=== PATIENT | female | born 1995 | race Caucasian/White ===

== ENCOUNTER 2018-06-29 01:25 | Emergency (ER) | payer BC, OTHER ==
[~2018-06-29] VITALS: Ht 154.9 cm; Wt 56.7 kg
[2018-06-29 01:30] VITALS: BP_SYST 121
--- NOTE | 2018-06-29 01:30 | NUR ---
Patient to ER bed 07 to gown for evaluation. Side rails up. Will assume care
--- NOTE | 2018-06-29 01:33 | NUR ---
ER Dr. Dubon at bedside examining patient.
--- NOTE | 2018-06-29 01:35 | NUR ---
Patient brought into ED after taking between 10 to 11 pills of Celexa 20 mg at 2230 on 06/28/18. Patient reports that she takes the medication for depression the last 3 years and is currently having nausea and mild headache. Patient in mild distress and tearful. Reports she has been under a lot of stress but just wants her mom. Reports mother is on her way but lives in [place]. Denies any SI/HI. No other complaints/injuries per patient or as noted. Will continue to monitor.
[2018-06-29] MEDS ORDERED: NACL 0.9% 1,000 ML IV ONE (01:45)
[2018-06-29] MEDS ORDERED: CEL20 PO (02:06)
[2018-06-29] MEDS ORDERED: OXCA300T4 PO (02:07)
[2018-06-29 02:14] LABS: BASOPHILS # (AUTO) 0.1 K/uL (0.0-0.2); BASOPHILS % (AUTO) 0.9 % (0.0-2.0); EOSINOPHILS # (AUTO) 0.2 K/uL (0.0-0.4); EOSINOPHILS % (AUTO) 2.9 % (0.0-4.0); HEMATOCRIT 38.4 % (36-48); HEMOGLOBIN 12.5 g/dL (12.0-16.0); LYMPHOCYTES % (AUTO) 28.1 % (20.5-51.5); MEAN CORPUSCULAR HEMOGLOBIN 27 pg (27-31); MEAN CORPUSCULAR HGB CONC 33 % (32-36); MEAN CORPUSCULAR VOLUME 82 fL (79.0-98.0); MONOCYTES # (AUTO) 0.5 K/uL (0.0-1.0); MONOCYTES % (AUTO) 7.1 % (1.7-9.3); NEUTROPHILS # (AUTO) 4.2 K/uL (1.8-7.7); PLATELET COUNT (AUTO) 232 K/uL (130-430); RED CELL DISTRIBUTION WIDTH 13.3 % (9.0-15.0)
--- NOTE | 2018-06-29 02:16 | NUR ---
Called Poison Control at [phone] and spoke with Don. Per recommendations: Acetaminophen, Salicyclates, Alcohol, Metabolic Panel, and supportive care. Place Patient on Cardiac monitoring for 12 hours to monitor QT interval. Dr. Dubon notified. Will continue to monitor patient.
[2018-06-29 02:22] LABS: ANION GAP 9 (5-15); CALCIUM 9.5 mg/dL (8.4-11.0); CHLORIDE 101 mmol/L (98-107); CREATININE 0.63 mg/dL (0.55-1.30); GLUCOSE 96 mg/dL (70-99); POTASSIUM 3.3 mmol/L (3.5-5.1); SODIUM SERUM 139 mmol/L (136-145); UREA NITROGEN, BLOOD 11 mg/dL (8-21)
[2018-06-29 02:27] LABS: GFR AFRICAN AMERICAN 153 mL/min (>90)
[2018-06-29 02:29] LABS: ALANINE AMINOTRANSFERASE 27 U/L (12-78); ASPARTATE AMINOTRANSFERASE 17 U/L (10-37); TOTAL BILIRUBIN 0.2 mg/dL (0.0-1.0)
[2018-06-29 02:33] LABS: ALCOHOL, BLOOD < 3 mg/dL (<10)
--- NOTE | 2018-06-29 02:34 | NUR ---
# 20 gauge angiocath placed to LFA. Use of asceptic technique. Opsite placed over site. Blood return noted. Flushed with 10 cc of normal saline. No evidence of infiltration noted. Patient tolerated well.
--- NOTE | 2018-06-29 02:34 | NUR ---
Medicated per MD orders. IVF infusing with no s/s of infiltration at this time. Will cont to monitor
[2018-06-29 03:06] LABS: ACETAMINOPHEN < 1 ug/mL (1-30)
[2018-06-29 03:13] LABS: BARBITURATE, URINE NEGATIVE (NEG <=200); BENZODIAZEPINE, URINE NEGATIVE (NEG <=150); CANNABINOID, URINE NEGATIVE (NEG <=50); COCAINE, URINE NEGATIVE (NEG <=150); METHAMPHETAMINES SCREEN,URINE NEGATIVE (NEG <=500); OPIATE, URINE NEGATIVE (NEG <=100); PHENCYCLIDINE SCREEN,URINE NEGATIVE (NEG <=25); UR TRICYCLIC ANTIDEPRESSANTS NEGATIVE (NEG <=300); URINE AMPHETAMINE NEGATIVE (NEG <=500); URINE METHADONE NEGATIVE (NEG <=200); URINE OXYCODONE SCREEN NEGATIVE (NEG <=100); URINE PROPOXYPHENE SCREEN NEGATIVE (NEG <=300)
--- NOTE | 2018-06-29 03:53 | NUR ---
Patient moved to bed 5 Addendum: 06/29/18 at 0426 by [email or web address] Report given to RUTHIE Wang
--- NOTE | 2018-06-29 03:53 | NUR ---
Assumed pt care. Pt resting quietly, easily awakened, calm and cooperative demeanor. Pt denies c/o pain or discomfort. Pt denies SI/HI, no A/V hallucination.
--- NOTE | 2018-06-29 04:57 | NUR ---
Resting quietly with eyes closed, NAD, VSS.
--- NOTE | 2018-06-29 05:10 | NUR ---
Pt.'s mother at bedside. Dr. Huber updating on POC.
--- NOTE | 2018-06-29 06:00 | NUR ---
Resting calmly, NAD. Mother at bedside.
--- NOTE | 2018-06-29 07:00 | NUR ---
report given, patient is resting with mom at bedside, denies SI/HI of any kind.
--- NOTE | 2018-06-29 07:15 | NUR ---
patient is with mom at bedside, resting with HOB up. patient is AOx4 and in a normal sinus rhythm.
--- NOTE | 2018-06-29 07:30 | NUR ---
orderdd breakfast tray for AM meal. patient is on a regular diet and states she tolerates eating well.
--- NOTE | 2018-06-29 07:45 | NUR ---
Pt resting no acute distres noted.
--- NOTE | 2018-06-29 08:00 | NUR ---
Family at bedside for support. Continuing to monitor.
--- NOTE | 2018-06-29 08:24 | NUR ---
Spoke w/ Tg at Poison control advised no need for further monitoring.
--- NOTE | 2018-06-29 08:30 | NUR ---
Pt escorted to restroom. Stready gait.
--- NOTE | 2018-06-29 08:45 | NUR ---
Pt given morning tray.
--- NOTE | 2018-06-29 08:47 | NUR ---
patient is talking to mother and refused her AM meal tray.
--- NOTE | 2018-06-29 09:00 | NUR ---
Pt encouraged to eat morning meal from parent. Pt tolerating well.
--- NOTE | 2018-06-29 09:15 | NUR ---
Pt resting, continuing to monitor.
--- NOTE | 2018-06-29 09:45 | NUR ---
PT continuing to sleep. No acute distress noted.
--- NOTE | 2018-06-29 10:00 | NUR ---
Pt to restroom, steady gait.
--- NOTE | 2018-06-29 10:15 | NUR ---
Pt declined hydration at this. Continuing to monitor
--- NOTE | 2018-06-29 10:30 | NUR ---
Pt readjusted for comfort, pt given warm blanket.
--- NOTE | 2018-06-29 11:00 | NUR ---
patient using restroom.
--- NOTE | 2018-06-29 11:15 | NUR ---
family at bedside complaining about the wait.
--- NOTE | 2018-06-29 11:30 | NUR ---
patient using restroom.
--- NOTE | 2018-06-29 11:45 | NUR ---
patient returned to restroom.
--- NOTE | 2018-06-29 12:00 | NUR ---
patient recieved a afternoon saftey food tray.
--- NOTE | 2018-06-29 12:15 | NUR ---
patient family came to nursing station requesting more information regarding the ETA of PET team.
--- NOTE | 2018-06-29 12:30 | NUR ---
patient used restroom in stable condition without any assist.
--- NOTE | 2018-06-29 12:45 | NUR ---
patient returned from restroom in stable condition. denies SI/HI thoughts.
--- NOTE | 2018-06-29 13:00 | NUR ---
called PET team for ETA. Mix, PET team states she will be calling us shortly.
--- NOTE | 2018-06-29 13:15 | NUR ---
informed family member of contact with PET team.
--- NOTE | 2018-06-29 13:30 | NUR ---
tee resting with family member at bedside.
--- NOTE | 2018-06-29 13:45 | NUR ---
patient resting in bed with mom at bedside. patient informed that PET team is on the way.
--- NOTE | 2018-06-29 14:00 | NUR ---
patient resting in bed with mom at bedside.
--- NOTE | 2018-06-29 14:15 | NUR ---
Pt given afternoon tray
--- NOTE | 2018-06-29 14:47 | NUR ---
PET team at bedside.
--- NOTE | 2018-06-29 15:35 | NUR ---
patient placed on a 51/50 hold by PET team.
--- NOTE | 2018-06-29 15:45 | NUR ---
patient family at bedside.
--- NOTE | 2018-06-29 16:00 | NUR ---
patient is resting in bed without SI/HI thoughts.
--- NOTE | 2018-06-29 16:15 | NUR ---
patient resting in bed with family at bedside
--- NOTE | 2018-06-29 16:30 | NUR ---
patient changing into gown.
--- NOTE | 2018-06-29 16:45 | NUR ---
patient changing in gown.
--- NOTE | 2018-06-29 17:01 | NUR ---
patients family would like to be contacted regarding admitting facility deven. patient is OK with information being shared with parents. Mother Consuelo Ej [phone] Father Francis Ej [phone]
--- NOTE | 2018-06-29 17:12 | NUR ---
Trinidad called from [facility] for clinical information. patient is accepted, waiting for a room number.
--- NOTE | 2018-06-29 17:17 | NUR ---
family removed all belongings. will continue to monitor.
--- NOTE | 2018-06-29 17:30 | NUR ---
dad at bedside
--- NOTE | 2018-06-29 17:45 | NUR ---
patient has no SI/HI thoughts and family is at bedside.
--- NOTE | 2018-06-29 18:01 | NUR ---
patient resting with dad at bedside.
--- NOTE | 2018-06-29 18:15 | NUR ---
Rajesh pratt in EDM - 06/29/18 at 1826 by [email or web address] transportation has arrived. IV removed.
--- NOTE | 2018-06-29 18:15 | NUR ---
transportation has arrived. IV removed.
--- NOTE | 2018-06-29 18:15 | NUR ---
transportation has arrived. IV removed.
--- NOTE | 2018-06-29 18:27 | NUR ---
Patient to be transferred to [facility]. Is being transferred due to higher level of care. Receiving facility has accepting physician and available space. ER physician has signed transfer form. Patient or responsible alliance party has agreed to transfer and signed form. Patient belongings inventoried and will be sent with patient. Copy of nursing notes, lab reports, EKG, Physicians Orders and X-rays to be sent with patient. Report called to RUTHIE Pepper at receiving facility. Receiving physician is MD Paredes. [facility] ambulance service has been called for transfer. present now for pickup.
[2018-06-29 18:29] VITALS: BP_SYST 114
== END 2018-06-29 18:29 ==
LOC: SED 01:25
DX: T43.222A Poisoning by selective serotonin reuptake inhibitors, intentional self-harm, initial encounter (principal); F32.9 Major depressive disorder, single episode, unspecified; Y92.89 Other specified places as the place of occurrence of the external cause
CPT/HCPCS: 36415; 80053; 80307; 85025; 93005; 99285; G0480; G0481; G0482; J7030